=== PATIENT | female | born 1985 | race Caucasian/White ===

== ENCOUNTER 2024-06-10 10:29 | Outpatient (CLI) | payer OTHER ==
[~2024-06-10 10:29] MED LIST: ALBUTEROL SULFATE 2.5MG/0.5ML INH NEB SOLN INH PRN; EPINEPHrine INJ 1 MG/ML 1ML AMP IM PRN; NS (Normal Saline) 0.9% 1,000 ML IV SCH; diphenhydrAMINE 50MG/ML VIAL IV PRN; methylPREDNISolone 125MG 2ML VIAL IV PRN
[2024-06-10 11:00] VITALS: BP 143/69; O2SAT 100
[2024-06-10] MEDS: IRON SUCROSE 300 MG in NS 250 ML IV ONE (11:29)
[2024-06-10 13:15] VITALS: BP 137/71; O2SAT 100
== END 2024-06-10 13:20 | disposition home or self-care (01) ==
LOC: M INFU 10:29 → EDUNIT# 11:00 → M INFU 13:20
PROVIDERS: ATTEND Internal Medicine Hematology
DX: D50.9 Iron deficiency anemia, unspecified (principal)
CPT/HCPCS: 96365; 96366; J1756

== ENCOUNTER 2024-06-17 10:55 | Outpatient (CLI) | payer OTHER ==
[~2024-06-17] VITALS: Ht 167.6 cm; Wt 91.2 kg
[2024-06-17 11:00] VITALS: BP 133/82; O2SAT 100
[2024-06-17] MEDS: IRON SUCROSE 300 MG in NS 250 ML IV ONE (11:32)
[2024-06-17 13:10] VITALS: BP 115/55; O2SAT 99
== END 2024-06-17 13:10 | disposition home or self-care (01) ==
LOC: M INFU 10:55 → EDUNIT# 11:00 → M INFU 13:10
PROVIDERS: ATTEND Internal Medicine Hematology
DX: D50.9 Iron deficiency anemia, unspecified (principal)
CPT/HCPCS: 96365; 96366; J1756

== ENCOUNTER → 2024-07-01 | Outpatient (CLI) | payer OTHER ==
[~2024-07-01] VITALS: Ht 167.6 cm; Wt 81.8 kg
[2024-07-01 11:45] VITALS: BP 119/72; O2SAT 100
[2024-07-01] MEDS: IRON SUCROSE 300 MG in NS 250 ML IV ONE (12:31)
[2024-07-01 14:00] VITALS: BP_SYST 77; O2SAT 98
== END ==
LOC: M INFU 11:42
PROVIDERS: ATTEND Internal Medicine Hematology
DX: D50.9 Iron deficiency anemia, unspecified (principal)
CPT/HCPCS: 96365; 96366; J1756

== ENCOUNTER 2024-08-11 10:24 | Day surgery (SDC) | payer OTHER ==
[~2024-08-11] VITALS: Ht 167.6 cm; Wt 87.1 kg
[~2024-08-11 10:24] MED LIST changes: -ALBUTEROL SULFATE 2.5MG/0.5ML INH NEB SOLN INH PRN; +C-251TAB PO; -EPINEPHrine INJ 1 MG/ML 1ML AMP IM PRN; +HYDR-643 PO; +IRON65TA2 PO; +MEDR10TA9 PO; -NS (Normal Saline) 0.9% 1,000 ML IV SCH; +SEMA2.4P; -diphenhydrAMINE 50MG/ML VIAL IV PRN; -methylPREDNISolone 125MG 2ML VIAL IV PRN
[2024-08-11] MEDS: SCOPOLAMINE 1MG TRANSDERMAL PATCH TOP ONE (11:08)
[2024-08-11] MEDS: ACETAMINOPHEN 500 MG TAB PO ONE (11:09)
[2024-08-11] MEDS ORDERED: LIDOCAINE 1% SDV 5ML VIAL SC PRN (11:10)
[2024-08-11] MEDS: LR 1,000 ML IV SCH (11:15)
[2024-08-11] MEDS ORDERED: propofoL 200 MG/20 ML VIAL As Ordered ONE (11:16)
[2024-08-11] MEDS ORDERED: LIDOCAINE 2% 100MG/5ML SDV (FOR ANES.) As Ordered ONE (11:16)
[2024-08-11] MEDS ORDERED: ONDANSETRON 4MG 2ML VIAL As Ordered ONE (11:16)
[2024-08-11] MEDS ORDERED: fentaNYL 100 MCG/2 ML INJECTION As Ordered ONE (11:50)
[2024-08-11] MEDS ORDERED: MIDAZOLAM INJ 2MG/2ML VIAL As Ordered ONE (11:50)
[2024-08-11] MEDS ORDERED: KETOROLAC 60MG 2ML VIAL As Ordered ONE (12:52)
[2024-08-11] MEDS ORDERED: HYDROMORPHONE HCL 0.5 MG/ 0.5 ML SYRINGE IV PRN (13:05)
[2024-08-11] MEDS ORDERED: fentaNYL 100 MCG/2 ML INJECTION IV PRN (13:05)
[2024-08-11] MEDS ORDERED: ONDANSETRON 4MG 2ML VIAL IV PRN (13:05)
[2024-08-11] MEDS ORDERED: oxyCODONE 5MG TAB PO PRN (13:05)
[2024-08-11] MEDS ORDERED: LR 1,000 ML IV SCH (13:05)
[2024-08-11 14:15] VITALS: BP 142/70; TEMP 96.8; O2SAT 100
== END 2024-08-11 14:24 | disposition home or self-care (01) ==
LOC: M SDC 10:24
PROVIDERS: ATTEND General Practice
DX: N84.0 Polyp of corpus uteri (principal); N85.8 Other specified noninflammatory disorders of uterus
CPT/HCPCS: 58558; 81025; 88305; J1100; J1885; J2250; J2405; J3010